=== PATIENT | female | born 1960 | race American Indian/Alaskan Native ===

== ENCOUNTER 2017-02-16 10:45 | Emergency (ER) | payer MEDICAID ==
[2017-02-16 10:54] VITALS: BP 135/84; PULSE 89; RESP 16; TEMP 98; O2SAT 98; BMI 31.9
--- NOTE | 2017-02-16 11:22 | ED PDOC ---
Arrival/HPI - General Chief Complaint: Lower Extremity Problem/Injury Time Seen by Provider: 02/16/17 11:19 Historian: Patient - History of Present Illness Narrative History of Present Illness (Text): 02/16/17 11:19 A 57 year old female presents to the emergency department complaining of pain to her left 5th toe for the past 6 days. Patient reports she hit her toe on the edge of her bed. She notes pain with ambulation. Patient denies any other trauma or injuries. Time/Duration: Other (6 days) Symptom Course: Unchanged Quality: Other Context: Home Past Medical History - Provider Review Nursing Documentation Reviewed: Yes - Infectious Disease Hx of Infectious Diseases: None - Cardiac Hx Hypertension: Yes - Pulmonary Hx Respiratory Disorders: No - Neurological Hx Neurological Disorder: No HX Cerebrovascular Accident: Yes (1989) - HEENT Hx HEENT Disorder: No - Renal Hx Renal Disorder: No - Endocrine/Metabolic Hx Endocrine Disorders: No - Hematological/Oncological Hx Blood Disorders: No - Integumentary Hx Dermatological Disorder: Yes Hx Psoriasis: Yes - Musculoskeletal/Rheumatological Hx Falls: No - Gastrointestinal Hx Gastrointestinal Disorders: No - Genitourinary/Gynecological Hx Genitourinary Disorders: No - Psychiatric Hx Psychophysiologic Disorder: No Hx Substance Use: No - Anesthesia Hx Anesthesia: No Hx Anesthesia Reactions: No Hx Malignant Hyperthermia: No Family/Social History - Physician Review Nursing Documentation Reviewed: Yes Family/Social History: No Known Family HX Smoking Status: Former Smoker Hx Alcohol Use: Yes (social) Hx Substance Use: No Allergies/Home Meds Allergies/Adverse Reactions: Allergies No Known Allergies Allergy (Verified 04/08/16 02:58) Home Medications: Home Meds Medication Instructions Recorded Confirmed Unobtainable 02/16/17 02/16/17 Physical Exam - Physical Exam Narrative Physical Exam (Text): - Review of Systems Constitutional: Normal. absent: Fatigue, Weight Change, Fevers Eyes: Normal ENT: Normal Respiratory: Normal absent: SOB, Cough, Sputum Cardiovascular: Normal absent: Chest pain, Palpitations, Syncope Gastrointestinal: Normal absent: Abdominal pain, Diarrhea, Nausea, Vomiting Genitourinary: Normal. absent: Dysuria, Frequency, Hematuria Musculoskeletal: (+) Left 5th toe pain absent: Arthralgias, Back Pain, Neck Pain Skin: Normal Neurological: Normal absent: Focal Weakness Endocrine: Normal Hemo/Lymphatic: Normal Psychiatric: Normal - Physical exam Patient appears age appropriate, speaking full sentences without difficulty - Systems Exam Head: Present: Atraumatic, Normocephalic Pupils: Present: PERRL Extraocular Muscles: Present: EOMI Conjunctiva: Present: Normal Mouth: Present: Moist Mucous Membranes Lower Extremity: Present: Tenderness over left 5th digit, Distal neuro fully intact, Full active and passive ROM in ankle. No: Edema, Swelling in left foot or toe Neurological: Present: GCS=15, Speech Normal, cranial nerves II through XII fully intact with no cerebellar abnormality, neuro-sensory fully intact. No focal neurological deficits. Skin: Present: Warm, Dry, Normal Color. No: Rashes Lymphatic: Present: OX3, NI, NC Psychiatric: Present: Alert, Oriented x 3, Normal Insight, Normal Concentration Vital Signs Reviewed: Yes Vital Signs Temp Pulse Resp BP Pulse Ox 02/16/17 10:52 98.0 F 89 16 135/84 98 Temperature: Afebrile Blood Pressure: Normal Pulse: Regular Respiratory Rate: Normal Appearance: Positive for: Well-Appearing, Non-Toxic, Comfortable Pain Distress: None Mental Status: Positive for: Alert and Oriented X 3 Medical Decision Making ED Course and Treatment: 02/16/17 11:19 Impression: A 57 year old female with left 5th toe pain after injury. On exam, mild tenderness, no distal neuro deficits, no swelling. Differential Diagnosis included but are not limited to: Sprain vs. Fracture Plan: -- Left foot xray -- Motrin -- Reassess and disposition Progress Notes: 02/16/17 12:06 xray shows linear 5th proximal phalynx fracture. interpreted by me. uriel splint applied flat bottom shoe provided pt in no distress instructed to f/u with ortho or podiatry in 1-2 days Pt states she understands to return to the ER right away for new or worsening symptoms or for inability to f/u with PMD or specialist as instructed. Patient states that she fully agrees with and understands discharge instructions. States that she agrees with the plan and disposition. Verbalized and repeated discharge instructions and plan. I have given the patient opportunity to ask any additional questions. - RAD Interpretation Radiology Orders: 02/16/17 11:20 FOOT LEFT 3 VIEWS ROUTINE [RAD] Stat - Medication Orders Current Medication Orders: Discontinued Medications Ibuprofen (Motrin Tab) 600 mg PO STAT STA Stop: 02/16/17 11:21 Last Admin: 02/16/17 11:26 Dose: 600 mg - Scribe Statement The provider has reviewed the documentation as recorded by the Jack Alberts Provider Jack Attestation: All medical record entries made by the Dahianaibe were at my direction and personally dictated by me. I have reviewed the chart and agree that the record accurately reflects my personal performance of the history, physical exam, medical decision making, and the department course for this patient. I have also personally directed, reviewed, and agree with the discharge instructions and disposition. Disposition/Present on Arrival - Present on Arrival Any Indicators Present on Arrival: No History of DVT/PE: No History of Uncontrolled Diabetes: No Urinary Catheter: No History of Decub. Ulcer: No History Surgical Site Infection Following: None - Disposition Have Diagnosis and Disposition been Completed?: Yes Diagnosis: Toe fracture Disposition: HOME/ ROUTINE Disposition Time: 12:13 Patient Plan: Discharge Condition: GOOD Discharge Instructions (ExitCare): Toe Fracture (ED) Additional Instructions: PLEASE RETURN TO THE EMERGENCY DEPARTMENT FOR NEW OR WORSENING SYMPTOMS. RETURN RIGHT AWAY IF YOU CANNOT FOLLOW UP WITH YOUR PRIMARY CARE DOCTOR, CLINIC, OR SPECIALIST IN 1-2 DAYS. Please take [id number] Motrin or Tylenol for pain Referrals: PCP,NO [Primary Care Provider] - Follow up with primary Krishna Melgar DPM [Staff Provider] - Follow up with primary Rah Waldron DO [Staff Provider] - Follow up with primary
--- NOTE | 2017-02-16 11:57 | RAD ---
PROCEDURE: Left Foot Radiographs. HISTORY: pain/injury COMPARISON: None. FINDINGS: BONES: Normal. No fracture. JOINTS: Normal. SOFT TISSUES: Normal. OTHER FINDINGS: Plantar spurs are seen as well as bony fragments or calcifications at the attachment of the plantar fascia IMPRESSION: No acute finding
== END 2017-02-16 12:27 | disposition home or self-care (01) ==
LOC: ED 10:45
DX: S92.515A Nondisplaced fracture of proximal phalanx of left lesser toe(s), initial encounter for closed fracture (principal); W22.03XA Walked into furniture, initial encounter; Y92.239 Unspecified place in hospital as the place of occurrence of the external cause

== ENCOUNTER 2017-10-30 01:01 | Emergency (ER) | payer MEDICAID ==
[2017-10-30 01:16] VITALS: BMI 31.8
[2017-10-30 01:19] VITALS: BP 142/78; PULSE 98; RESP 18; TEMP 98.2; O2SAT 98
--- NOTE | 2017-10-30 01:37 | ED PDOC ---
Arrival/HPI - General Historian: Patient <Vivi Braden - Last Filed: 10/30/17 01:52> <Jarrod Merchant - Last Filed: 10/30/17 02:35> - General Chief Complaint: Abnormal Skin Integrity Time Seen by Provider: 10/30/17 01:20 - History of Present Illness Narrative History of Present Illness (Text): 10/30/17 01:38 57-year-old female with a history of psoriasis presents today with itchy rash to the buttocks and posterior thighs. Patient denies fevers or chills. Patient states she takes twice a month. Patient states that she was seen by her primary care physician and her boiler operator helper for flareup of her psoriasis. Patient states she was given prednisone and medicated lotion. Patient states she's been taking hot showers. Patient states her skin is been dry and pruritic. Patient states she has new scaly plaques that have formed on the lower back/buttocks. Patient states she has itchy sensation along with dry skin along the posterior aspect of the thighs bilaterally. Patient states she took Benadryl at 9 AM this morning for itch with some improvement. No other complaints patient denies chest pain or shortness of breath. Denies dizziness or weakness. Denies abdominal pain. (Vivi Braden) Past Medical History - Provider Review Nursing Documentation Reviewed: Yes - Travel History Have you recently traveled outside [place] w/in the past 3 mons?: No - Infectious Disease Hx of Infectious Diseases: None - Cardiac Hx Hypertension: Yes - Pulmonary Hx Respiratory Disorders: No - Neurological Hx Neurological Disorder: No HX Cerebrovascular Accident: Yes (1989) - HEENT Hx HEENT Disorder: No - Renal Hx Renal Disorder: No - Endocrine/Metabolic Hx Endocrine Disorders: No - Hematological/Oncological Hx Blood Disorders: No - Integumentary Hx Dermatological Disorder: Yes Hx Psoriasis: Yes - Musculoskeletal/Rheumatological Hx Falls: No - Gastrointestinal Hx Gastrointestinal Disorders: No - Genitourinary/Gynecological Hx Genitourinary Disorders: No - Psychiatric Hx Psychophysiologic Disorder: No Hx Substance Use: No - Anesthesia Hx Anesthesia: No Hx Anesthesia Reactions: No Hx Malignant Hyperthermia: No <Vivi Braden - Last Filed: 10/30/17 01:52> Family/Social History - Physician Review Nursing Documentation Reviewed: Yes Family/Social History: Unknown Family HX Smoking Status: Former Smoker Hx Alcohol Use: Yes (social) Hx Substance Use: No <Vivi Braden - Last Filed: 10/30/17 01:52> Allergies/Home Meds <Vivi Braden - Last Filed: 10/30/17 01:52> <Jarrod Merchant - Last Filed: 10/30/17 02:35> Allergies/Adverse Reactions: Allergies No Known Allergies Allergy (Verified 04/08/16 02:58) Review of Systems - Review of Systems Constitutional: absent: Fatigue, Fevers Respiratory: absent: SOB, Cough Cardiovascular: absent: Chest Pain, Palpitations Gastrointestinal: absent: Abdominal Pain, Nausea, Vomiting Genitourinary Female: absent: Dysuria Musculoskeletal: absent: Arthralgias Skin: Rash, Pruritis Neurological: absent: Headache, Dizziness Psychiatric: absent: Anxiety <Vivi Braden - Last Filed: 10/30/17 01:52> Physical Exam Vital Signs Reviewed: Yes Temperature: Afebrile Blood Pressure: Normal Pulse: Regular Respiratory Rate: Normal Appearance: Positive for: Well-Appearing, Non-Toxic, Comfortable Pain Distress: None Mental Status: Positive for: Alert and Oriented X 3 - Systems Exam Head: Present: Atraumatic Mouth: Present: Moist Mucous Membranes Respiratory/Chest: Present: Clear to Auscultation, Good Air Exchange. No: Respiratory Distress, Accessory Muscle Use Cardiovascular: Present: Regular Rate and Rhythm, Normal S1, S2. No: Murmurs Upper Extremity: Present: Normal ROM Lower Extremity: Present: Normal ROM Neurological: Present: GCS=15, Speech Normal Skin: Present: Warm, Dry, Rashes (large 3cm round scaly plaque noted to the right lower back/buttock; no surrounding erythema; + dry skin noted throughout body. ), Normal Color Psychiatric: Present: Alert, Oriented x 3 <Vivi Braden - Last Filed: 10/30/17 01:52> Vital Signs Temp Pulse Resp BP Pulse Ox 10/30/17 01:16 98.2 F 98 H 18 142/78 98 Medical Decision Making <Viiv Braden - Last Filed: 10/30/17 01:52> <Jarrod Merchant - Last Filed: 10/30/17 02:35> ED Course and Treatment: 10/30/17 01:45 Patient is nontoxic well-appearing in no distress with stable vital signs no angioedema. Lungs are clear to auscultation bilaterally there is no wheezing noted. The airway is patent benadryl 25mg po pepcid 20mg po I advised taking Benadryl every 6 hours as needed for itch. pt was advised to apply lotion frequently and f/u with boiler operator helper. pt was advised to not take long shower or hot showers. Advised patient to follow up with primary care physician and boiler operator helper within the next 2 days and return if symptoms worsen persist or if new symptoms develop. Patient verbalizes understanding of discharge instructions and need for immediate followup. all aspects of this case were discussed the attending of record. Impression : rash, psorasis continue your prescribed medications benadryl every 6 hours as needed for itch pepcid 1 tablet daily apply lotion frequently return immediately if symptoms worsen,persist or if new symptoms develop. (Vivi Braden) - Medication Orders Current Medication Orders: Discontinued Medications Diphenhydramine HCl (Benadryl) 25 mg PO ONCE ONE Stop: 10/30/17 01:31 Last Admin: 10/30/17 01:48 Dose: 25 mg Famotidine (Pepcid) 20 mg PO STAT STA Stop: 10/30/17 01:31 Last Admin: 10/30/17 01:48 Dose: 20 mg - PA / AGRICULT[employer] MECH[employer]IC / Resident Statement / has reviewed & agrees with the documentation as recorded. <Jarrod Merchant - Last Filed: 10/30/17 02:35> Disposition/Present on Arrival - Present on Arrival Any Indicators Present on Arrival: No History of DVT/PE: No History of Uncontrolled Diabetes: No Urinary Catheter: No History of Decub. Ulcer: No History Surgical Site Infection Following: None - Disposition Have Diagnosis and Disposition been Completed?: Yes Disposition Time: 01:33 Patient Plan: Discharge <Vivi Braden - Last Filed: 10/30/17 01:52> <Jarrod Merchant - Last Filed: 10/30/17 02:35> - Disposition Diagnosis: Rash, History of skin pruritus Disposition: HOME/ ROUTINE Condition: GOOD Discharge Instructions (ExitCare): Skin Rash (DC) Additional Instructions: continue your prescribed medications benadryl every 6 hours as needed for itch pepcid 1 tablet daily apply lotion frequently return immediately if symptoms worsen,persist or if new symptoms develop. Prescriptions: DiphenhydrAMINE [Benadryl] 25 mg PO Q6H #20 cap Famotidine [Pepcid] 20 mg PO DAILY #30 tab Referrals: Marilou Mendieta MD [Staff Provider] - Follow up with primary Ishmael Hernandez Jr., MD [Medical Doctor] - Follow up with primary Anuradha Thibodeaux MD [Staff Provider] - Follow up with primary Forms: [employer] (Urdu), WORK NOTE
== END 2017-10-30 01:52 | disposition home or self-care (01) ==
LOC: ED 01:01
DX: R21 Rash and other nonspecific skin eruption (principal); L29.9 Pruritus, unspecified; I10 Essential (primary) hypertension; Z87.891 Personal history of nicotine dependence

== ENCOUNTER 2017-11-03 11:41 | Emergency (ER) | payer MEDICAID ==
[2017-11-03 11:46] VITALS: BMI 37.8
[2017-11-03 11:52] VITALS: BP 132/87; PULSE 90; RESP 18; TEMP 98; O2SAT 97
--- NOTE | 2017-11-03 14:17 | ED PDOC ---
Arrival/HPI - General Chief Complaint: Back Pain Time Seen by Provider: 11/03/17 11:54 Historian: Patient - History of Present Illness Narrative History of Present Illness (Text): 11/03/17 12:24 A 57 year old female, whose past medical history includes rheumatoid arthritis, presents to the emergency department complaining of non-traumatic back and hip pain. Patient reports she takes pain medications as prescribed to her by PMD, but has had little relief. Patient denies any urinary symptoms, any saddle anesthesia, or any other complaints at this time. No PMD Past Medical History - Provider Review Nursing Documentation Reviewed: Yes - Infectious Disease Hx of Infectious Diseases: None - Cardiac Hx Hypertension: Yes - Pulmonary Hx Respiratory Disorders: No - Neurological Hx Neurological Disorder: No HX Cerebrovascular Accident: Yes (1989) - HEENT Hx HEENT Disorder: No - Renal Hx Renal Disorder: No - Endocrine/Metabolic Hx Endocrine Disorders: No - Hematological/Oncological Hx Blood Disorders: No - Integumentary Hx Dermatological Disorder: Yes Hx Psoriasis: Yes - Musculoskeletal/Rheumatological Hx Arthritis: Yes Hx Falls: No Hx Rheumatoid Arthritis: Yes - Gastrointestinal Hx Gastrointestinal Disorders: No - Genitourinary/Gynecological Hx Genitourinary Disorders: No - Psychiatric Hx Psychophysiologic Disorder: No Hx Substance Use: No - Anesthesia Hx Anesthesia: No Hx Anesthesia Reactions: No Hx Malignant Hyperthermia: No Family/Social History - Physician Review Nursing Documentation Reviewed: Yes Family/Social History: No Known Family HX Smoking Status: Current Some Days Smoker Hx Alcohol Use: Yes (social) Frequency of alcohol use: Socially Hx Substance Use: No Allergies/Home Meds Allergies/Adverse Reactions: Allergies No Known Allergies Allergy (Verified 04/08/16 02:58) Home Medications: Home Meds Medication Instructions Recorded Confirmed DiphenhydrAMINE [Benadryl] 25 mg PO Q6H PRN 11/03/17 11/03/17 Folic Acid [Folic Acid] 1 tab PO DAILY 11/03/17 11/03/17 Loratadine [Claritin] 1 tab PO DAILY 11/03/17 11/03/17 Nabumetone [Relafen] 1 tab PO BID 11/03/17 11/03/17 amLODIPine [Norvasc] 1 tab PO DAILY 11/03/17 11/03/17 Review of Systems - Physician Review All systems were reviewed & negative as marked: Yes - Review of Systems Genitourinary Female: absent: Dysuria, Frequency, Hematuria, Urine Output Changes Musculoskeletal: Back Pain (nontraumatic), Other (nontraumatic hip pain; no saddle anesthesia) Physical Exam Vital Signs Reviewed: Yes Vital Signs Temp Pulse Resp BP Pulse Ox 11/03/17 11:52 98.0 F 90 18 132/87 97 Temperature: Afebrile Blood Pressure: Normal Pulse: Regular Respiratory Rate: Normal Appearance: Positive for: Well-Appearing Pain Distress: None Mental Status: Positive for: Alert and Oriented X 3 - Systems Exam Head: Present: Atraumatic, Normocephalic Pupils: Present: PERRL Extroacular Muscles: Present: EOMI Conjunctiva: Present: Normal Mouth: Present: Moist Mucous Membranes Neck: Present: Normal Range of Motion Respiratory/Chest: Present: Clear to Auscultation, Good Air Exchange. No: Respiratory Distress, Accessory Muscle Use Cardiovascular: Present: Regular Rate and Rhythm, Normal S1, S2. No: Murmurs Abdomen: Present: Normal Bowel Sounds. No: Tenderness, Distention, Peritoneal Signs Back: Present: Normal Inspection Upper Extremity: Present: Normal Inspection. No: Cyanosis, Edema Lower Extremity: Present: Normal Inspection. No: Edema Neurological: Present: GCS=15, CN II-XII Intact, Speech Normal Skin: Present: Warm, Dry, Normal Color. No: Rashes Psychiatric: Present: Alert, Oriented x 3, Normal Insight, Normal Concentration Medical Decision Making ED Course and Treatment: 11/03/17 12:28 Impression: 57 year old female with non-traumatic back and hip pain. No acute findings on physical examination. Plan: -- Toradol -- Reassess and disposition Progress Notes: - Medication Orders Current Medication Orders: Discontinued Medications Ketorolac Tromethamine (Toradol) 60 mg IM STAT STA Stop: 11/03/17 12:29 Last Admin: 11/03/17 12:41 Dose: 60 mg MAR Pain Assessment Document 11/03/17 12:41 EQ (Rec: 11/03/17 12:42 EQ [id number]) Pain Reassessment Is this a pain reassessment? No Sleep Is patient sleeping during reassessment? No Presence of Pain Presence of Pain Yes Pain Scale Used Pain Scale Used Numeric IM Administration Charges Document 11/03/17 12:41 EQ (Rec: 11/03/17 12:42 EQ [id number]) Charges for Administration # of IM Administrations 1 - Scribe Statement The provider has reviewed the documentation as recorded by the Jack Baker Provider Jack Attestation: All medical record entries made by the Scribe were at my direction and personally dictated by me. I have reviewed the chart and agree that the record accurately reflects my personal performance of the history, physical exam, medical decision making, and the department course for this patient. I have also personally directed, reviewed, and agree with the discharge instructions and disposition. Disposition/Present on Arrival - Present on Arrival Any Indicators Present on Arrival: No History of DVT/PE: No History of Uncontrolled Diabetes: No Urinary Catheter: No History of Decub. Ulcer: No History Surgical Site Infection Following: None - Disposition Have Diagnosis and Disposition been Completed?: Yes Diagnosis: Rheumatoid arthritis Disposition: HOME/ ROUTINE Disposition Time: 12:15 Condition: IMPROVED Discharge Instructions (ExitCare): Rheumatoid Arthritis (DC) Additional Instructions: Thank you for letting us take care of you today. The emergency medical care you received today was directed at your acute symptoms. If you were prescribed any medication, please fill it and take as directed. It may take several days for your symptoms to resolve. Return to the Emergency Department if your symptoms worsen, do not improve, or if you have any other problems. Please contact your doctor or call one of the physicians/clinics you have been referred to that are listed on the Patient Visit Information form that is included in your discharge packet. Bring any paperwork you were given at discharge with you along with any medications you are taking to your follow up visit. Our treatment cannot replace ongoing medical care by a primary care provider (PCP) outside of the emergency department. Thank you for allowing the [facility] team to be part of your care today. Follow up with your primary doctor in 3-4 days for re-evaluation and further management. Prescriptions: traMADol [Ultram] 50 mg PO Q8 PRN #15 tab PRN Reason: Pain, Severe (8-10) Referrals: [facility] Marily Tay, [Non-Staff] - Follow up with primary Forms: [email or web address] (Urdu)
== END 2017-11-03 13:00 | disposition home or self-care (01) ==
LOC: ED 11:41
DX: M06.9 Rheumatoid arthritis, unspecified (principal)
CPT/HCPCS: 96372; 99282; J1885

== ENCOUNTER 2017-11-16 14:55 | Emergency (ER) | payer MEDICAID ==
[2017-11-16 15:09] VITALS: BMI 39.4
[2017-11-16] MEDS ORDERED: DiphenhydrAMINE 50 mg/ml Inj IVP STA (15:18)
[2017-11-16] MEDS ORDERED: Famotidine 20mg/50ml 20 MG/50 ML BAG IVPB STA (15:19)
--- NOTE | 2017-11-16 15:26 | ED PDOC ---
Arrival/HPI - General Chief Complaint: Abnormal Skin Integrity Time Seen by Provider: 11/16/17 15:03 Historian: Patient - History of Present Illness Narrative History of Present Illness (Text): 11/16/17 15:20 A 57 year old female, whose past medical history includes rheumatoid arthritis, and psoriasis presents to the emergency department complaining of left buttock itchy rash x few days. Patient stated she has been applying Dovonex topical cream without significant relief of itching. Patient noted she saw her Spreader Box Operator yesterday who prescribed Dovonex. Patient also noted getting Humira twice a month, and last time was yesterday. Patient stated rash is not painful. Patient denies fever, abscess, sob, recent travel or sick contact. Time/Duration: Other (see hpi) Context: Home Past Medical History - Provider Review Nursing Documentation Reviewed: Yes - Infectious Disease Hx of Infectious Diseases: None - Cardiac Hx Hypertension: Yes - Pulmonary Hx Respiratory Disorders: No - Neurological Hx Neurological Disorder: No HX Cerebrovascular Accident: Yes (1989) - HEENT Hx HEENT Disorder: No - Renal Hx Renal Disorder: No - Endocrine/Metabolic Hx Endocrine Disorders: No - Hematological/Oncological Hx Blood Disorders: No - Integumentary Hx Dermatological Disorder: Yes Hx Psoriasis: Yes - Musculoskeletal/Rheumatological Hx Arthritis: Yes Hx Falls: No Hx Rheumatoid Arthritis: Yes - Gastrointestinal Hx Gastrointestinal Disorders: No - Genitourinary/Gynecological Hx Genitourinary Disorders: No - Psychiatric Hx Psychophysiologic Disorder: No Hx Substance Use: No - Anesthesia Hx Anesthesia: No Hx Anesthesia Reactions: No Hx Malignant Hyperthermia: No Family/Social History - Physician Review Nursing Documentation Reviewed: Yes Family/Social History: Other (noncontributory) Smoking Status: Current Some Days Smoker Hx Alcohol Use: Yes (social) Hx Substance Use: No Allergies/Home Meds Allergies/Adverse Reactions: Allergies No Known Allergies Allergy (Verified 04/08/16 02:58) Home Medications: Home Meds Medication Instructions Recorded Confirmed DiphenhydrAMINE [Benadryl] 25 mg PO Q6H PRN 11/03/17 11/16/17 Folic Acid [Folic Acid] 1 tab PO DAILY 11/03/17 11/16/17 Loratadine [Claritin] 1 tab PO DAILY 11/03/17 11/16/17 Nabumetone [Relafen] 1 tab PO BID 11/03/17 11/16/17 amLODIPine [Norvasc] 1 tab PO DAILY 11/03/17 11/16/17 Review of Systems - Review of Systems Constitutional: Normal. absent: Fatigue, Weight Change, Fevers Eyes: Normal ENT: Normal Respiratory: Normal Cardiovascular: Normal Gastrointestinal: Normal Genitourinary Female: Normal Musculoskeletal: Normal Skin: Rash, Pruritis. absent: Skin Lesions, Laceration, Abscess, Ulcer, Cellulitis Neurological: Normal Endocrine: Normal Hemo/Lymphatic: Normal Psychiatric: Normal Physical Exam Vital Signs Temp Pulse Resp BP Pulse Ox 11/16/17 14:56 98.3 F 64 18 115/82 98 Temperature: Afebrile Blood Pressure: Normal Pulse: Regular Respiratory Rate: Normal Appearance: Positive for: Well-Appearing, Non-Toxic, Comfortable Pain Distress: None Mental Status: Positive for: Alert and Oriented X 3 - Systems Exam Head: Present: Atraumatic, Normocephalic Pupils: Present: PERRL Extroacular Muscles: Present: EOMI Conjunctiva: Present: Normal Mouth: Present: Moist Mucous Membranes Neck: Present: Normal Range of Motion, Trachea Midline. No: Meningeal Signs Respiratory/Chest: Present: Clear to Auscultation, Good Air Exchange. No: Respiratory Distress, Accessory Muscle Use, Wheezes, Rhonchi Cardiovascular: Present: Regular Rate and Rhythm, Normal S1, S2. No: Murmurs Back: Present: Normal Inspection Upper Extremity: Present: Normal Inspection, Normal ROM Lower Extremity: Present: Normal Inspection, Normal ROM Neurological: Present: GCS=15, CN II-XII Intact, Speech Normal Skin: Present: Warm, Dry, Rashes ((+) mild redness over th left buttock area at the level of sacrum. Mild warmth on palpation. No tenderness. No abscess. ) Lymphatic: No: Inguinal Adenopathy Psychiatric: Present: Alert, Oriented x 3, Normal Insight, Normal Concentration Medical Decision Making ED Course and Treatment: 11/16/17 15:29 Patient is on Humira for RA and psoriasis. I am recommending Keflex due to rash appears mild erythematous, and patient is in Humira. 11/16/17 16:40 Patient is using Dovonex cream for psoriasis which common side effects are pruritus, rash. I told patient to stop Dovonex, and to f/u private health information tech in 2-3 days. Patient will be prescribed triamcinolone Topical 0.5 None bid and Keflex 500 mg Cap QID. Patient understood plan. Re-evaluation. Patient feels better. Discussed results and plan with patient who expresses understanding. All questions answered and there is agreement with the plan to discharge home with instructions. Patient stable for discharge. Return if symptoms persist or worsen. Re-evaluation Time: 16:43 Reassessment Condition: Re-examined, Improved - Medication Orders Current Medication Orders: Discontinued Medications Cephalexin Monohydrate (Keflex) 500 mg PO STAT STA PRN Reason: Protocol Stop: 11/16/17 15:20 Last Admin: 11/16/17 15:39 Dose: 500 mg Diphenhydramine HCl (Benadryl) 50 mg IVP STAT STA Stop: 11/16/17 15:19 Last Admin: 11/16/17 15:39 Dose: 50 mg IVP Administration Document 11/16/17 15:39 GMD (Rec: 11/16/17 15:39 GMD [id number]) Charges for Administration # of IVP Administrations 1 Famotidine (Pepcid 20mg/50ml Premix) 20 mg in 50 mls @ 100 mls/hr IVPB STAT STA Stop: 11/16/17 15:48 Last Admin: 11/16/17 15:40 Dose: 100 mls/hr eMAR Start Stop Document 11/16/17 15:40 GMD (Rec: 11/16/17 15:40 GMD [id number]) Intravenous Solution Start Date 11/16/17 Start Time 15:40 End Date 11/16/17 End time 16:10 Total Infusion Time 30 Disposition/Present on Arrival - Present on Arrival Any Indicators Present on Arrival: No History of DVT/PE: No History of Uncontrolled Diabetes: No Urinary Catheter: No History of Decub. Ulcer: No History Surgical Site Infection Following: None - Disposition Have Diagnosis and Disposition been Completed?: Yes Diagnosis: Rash and nonspecific skin eruption Disposition: HOME/ ROUTINE Disposition Time: 16:43 Patient Plan: Discharge Patient Problems: Current Active Problems Problem Status Onset Rash and nonspecific skin eruption Acute Condition: GOOD Discharge Instructions (ExitCare): Skin Rash (DC) Additional Instructions: Call private Spreader Box Operator for follow up visit in 1-2 days. Apply cream of affected itchy area. Do not apply on face. Return to emergency if rash worsen , fever, or painful rash. Continue with home Atarax for itching as needed. Prescriptions: Triamcinolone 0.1% [Triamcinolone Acetonide] 1 appl TP BID PRN #1 tube PRN Reason: Itching / Pruritus Referrals: Ishmael Hernandez Jr., MD [Primary Care Provider] - Follow up with primary Forms: [employer] (Polish)
[2017-11-16 15:40] VITALS: RESP 18; TEMP 98.3
[2017-11-16 16:56] VITALS: BP 110/70; PULSE 73; O2SAT 100
== END 2017-11-16 16:56 | disposition home or self-care (01) ==
LOC: ED 14:55
DX: R21 Rash and other nonspecific skin eruption (principal)
CPT/HCPCS: 96365; 96375; 99284; J1200